=== PATIENT | female | born 1995 | race Caucasian/White ===

== ENCOUNTER 2023-10-16 12:19 | Emergency (ER) | payer SELFPAY ==
[~2023-10-16] VITALS: Ht 165.1 cm; Wt 63.5 kg
[2023-10-16 12:46] LABS: BASOPHILS # (AUTO) 0.1 K/uL (0.0-0.2); BASOPHILS % (AUTO) 0.6 % (0.0-2.0); HEMATOCRIT 39.3 % (36-48); HEMOGLOBIN 13.1 g/dL (12.0-16.0); LYMPHOCYTES % (AUTO) 9.5 % (20.5-51.5); MEAN CORPUSCULAR HEMOGLOBIN 31 pg (27-31); MEAN CORPUSCULAR HGB CONC 33 % (32-36); MEAN CORPUSCULAR VOLUME 92 fL (79.0-98.0); MONOCYTES # (AUTO) 0.4 K/uL (0.0-1.0); MONOCYTES % (AUTO) 3.9 % (1.7-9.3); NEUTROPHILS # (AUTO) 9.2 K/uL (1.8-7.7); PLATELET COUNT (AUTO) 267 K/uL (130-430); RED BLOOD CELL COUNT(AUTO) 4.28 MIL/uL (4.2-6.2); RED CELL DISTRIBUTION WIDTH 13.3 % (9.0-15.0); WHITE BLOOD COUNT (AUTO) 10.8 K/uL (4.8-10.8)
[2023-10-16 12:59] VITALS: BP_SYST 150; PULSE 105; RESP 20; TEMP 98.8; O2SAT 98
[2023-10-16 13:40] LABS: CREATININE 1.03 mg/dL (0.55-1.30); POTASSIUM 3.1 mmol/L (3.5-5.1)
== END 2023-10-16 18:42 | disposition home or self-care (01) ==
LOC: SED 12:19
DX: F41.9 Anxiety disorder, unspecified (principal); M79.642 Pain in left hand; M79.641 Pain in right hand; R53.1 Weakness
CPT/HCPCS: 36415; 80048; 83735; 85025; 99283